=== PATIENT | female | born 1960 | race Caucasian/White ===

== ENCOUNTER 2020-12-22 10:47 | Outpatient (REF) | payer MEDICAID, SELFPAY ==
--- NOTE | ~2020-12-22 | XR_ITS ---
EXAMINATION: XR CHEST CLINICAL INFORMATION: Cough. COMPARISON: None TECHNIQUE: 2 views of the chest were obtained. FINDINGS: No significant abnormality is noted involving the heart, lungs, mediastinum, bony thorax or soft tissues. XR/XR chest 2V IMPRESSION: Unremarkable chest examination.
== END 2020-12-22 10:48 | disposition home or self-care (01) ==
LOC: HO.XRAY 10:47
PROVIDERS: PCP Internal Medicine; Visit Provider Emergency Medicine
DX: R05 Cough (principal)
CPT/HCPCS: 71046

== ENCOUNTER 2021-01-28 13:45 | Outpatient (REF) | payer MEDICAID, SELFPAY ==
--- NOTE | ~2021-01-28 | XR_ITS ---
EXAMINATION: LEFT KNEE AND LEFT HIP: CLINICAL INFORMATION: Chronic pain COMPARISON: None TECHNIQUE: 4 views left knee and 2 views left hip. FINDINGS: Left hip: There is no visible acute fracture, dislocation or subluxation. The hip joint space is maintained normal. Left knee: There is no visible acute fracture, dislocation or subluxation seen. The soft tissues are normal. XR/XR hip LT min 2V IMPRESSION: Unremarkable left hip and left knee exam.
--- NOTE | ~2021-01-28 | XR_ITS ---
EXAMINATION: LEFT KNEE AND LEFT HIP: CLINICAL INFORMATION: Chronic pain COMPARISON: None TECHNIQUE: 4 views left knee and 2 views left hip. FINDINGS: Left hip: There is no visible acute fracture, dislocation or subluxation. The hip joint space is maintained normal. Left knee: There is no visible acute fracture, dislocation or subluxation seen. The soft tissues are normal. XR/XR knee LT 4V IMPRESSION: Unremarkable left hip and left knee exam.
== END 2021-01-28 13:46 | disposition home or self-care (01) ==
LOC: HO.XRAY 13:45
PROVIDERS: PCP Internal Medicine; Visit Provider Internal Medicine
DX: G89.29 Other chronic pain (principal); M25.552 Pain in left hip; M25.562 Pain in left knee
CPT/HCPCS: 73502; 73564

== ENCOUNTER 2021-02-09 08:31 | Outpatient (REF) | payer MEDICAID, SELFPAY ==
[2021-02-09 11:20] LABS: Anion Gap 12 (12-20); Blood Urea Nitrogen 14 mg/dL (9-16); Calcium 10.6 mg/dL (8.4-10.2); Carbon Dioxide 29 mmol/L (22-29); Chloride 103 mmol/L (96-108); Estimated Glomerular Filt Rate > 60; Glucose Random 72 mg/dL (60-115); Potassium 5.4 mmol/L (3.3-5.1); Sodium 139 mmol/L (135-145)
[2021-02-09 11:37] LABS: Erythrocyte Sedimentation Rate 20 MM/HR (0-20)
[2021-02-10 13:32] LABS: IgA 345 mg/dL (70-320); IgG 1157 mg/dL (600-1540); IgM 126 mg/dL (50-300)
== END 2021-02-09 08:32 | disposition home or self-care (01) ==
LOC: HO.LAB 08:31
PROVIDERS: PCP Internal Medicine; Visit Provider Hospitalist
DX: J45.909 Unspecified asthma, uncomplicated (principal); J31.0 Chronic rhinitis; J98.6 Disorders of diaphragm; G47.33 Obstructive sleep apnea (adult) (pediatric); Z20.822 Contact with and (suspected) exposure to COVID-19
CPT/HCPCS: 80048; 82784; 85652; 99202; U0003; U0005